=== PATIENT | female | born 1980 | race Caucasian/White ===

== ENCOUNTER 2018-08-08 13:43 | Emergency (ER) | payer OTHER ==
[~2018-08-08] VITALS: Ht 167.6 cm; Wt 68.6 kg
[2018-08-08 13:54] VITALS: BP 175/82; PULSE 81; RESP 18; Ht 167.6 cm; Wt 68.6 kg
--- NOTE | 2018-08-08 15:19 | ERD ---
ER Documentation Chief Complaint Chief Complaint C/O H/A AND NECK PAIN S/P TRIP AND FALL LAST NIGHT. ABRASION TO FOREHEAD. HPI This is a 37 yo female patient who presents to the ED with c/o head pain. States that last night she was breaking apart a wooden bench and slipped and fell onto her forehead. No KO. No nausea. No bleeding.+ETOH at time of fall. Patient states this morning while she was driving to work she had a sudden sensation of confusion, dizziness, pain in her right eye and now is complaining of throbbing while being in an upright position that is relieved by laying down. No vomiting, clear speech, no headache. Superficial abrasion noted to center of forehead. ROS All systems reviewed and are negative except as per history of present illness. Medications Home Meds Active Scripts Tramadol HCl (Tramadol HCl) 50 Mg Tablet, 50 MG PO Q4 PRN for PAIN for 3 Days, #10 TAB Prov:SELMA ALEXANDER NP 08/08/18 Allergies Allergies: Coded Allergies: No Known Allergy (Unverified , 08/08/18) PMhx/Soc History of Surgery: No Anesthesia Reaction: No Hx Neurological Disorder: No Hx Respiratory Disorders: No Hx Cardiac Disorders: Yes (htn) Hx Psychiatric Problems: No Hx Miscellaneous Medical Probl: No Hx Alcohol Use: No Hx Substance Use: No Hx Tobacco Use: No Smoking Status: Never smoker FmHx Family History: No diabetes, No coronary disease, No other Physical Exam Vitals Vital Signs Date Temp Pulse Resp B/P (MAP) Pulse Ox O2 O2 Flow FiO2 Time Delivery Rate 08/08/18 98.3 81 18 175/82 99 13:54 (113) Physical Exam Const: No acute distress Head: abrasion to center of forehead, no bleeding, no swelling, point tenderness at site of abrasion, no crepitus Eyes: Normal Conjunctiva. PERRL, EOMI, no raccoon eyes ENT: Normal External Ears, Nose and Mouth. Pharynx pink, moist, no oral injury. No graham signs. Neck: Full range of motion. No meningismus. Cervical spinal tenderness at C4-5, No lymphadenopathy. Resp: Clear to auscultation bilaterally, no rales, rhonchi. Chest rise equal bilaterally. Cardio: Regular rate and rhythm, no murmurs Abd: Soft, non tender, non distended. Normal bowel sounds. No bruising. Skin: No petechiae or rashes, no abrasions, no hematomas. Back: No midline or flank tenderness, no point tenderness to spine, FROM Ext: No cyanosis, or edema, no deformities Neur: Awake and alert, CN II-XII intact, steady gait, clear speech, no pronator drift, equal smile, BL tombstone erector 5/5, sensation intact BL, negative Romberg, negative [id number] test Psych: Normal Mood and Affect Results 24 hrs Laboratory Tests Test 08/08/18 15:44 Bedside Urine pH (LAB) 7.5 Bedside Urine Protein (LAB) 1+ Bedside Urine Glucose (UA) Negative Bedside Urine Ketones (LAB) Negative Bedside Urine Blood 3+ Bedside Urine Nitrite (LAB) Positive Bedside Urine Leukocyte Esterase (L Negative Procedures/MDM PROCEDURES/MDM DIAGNOSTIC IMAGING: Read by radiologist. CT Brain IMPRESSION: No evidence of acute intracranial pathology. CT Cervical spine IMPRESSION: 1. Reversal of the cervical lordosis, without evidence of fracture. 2. Mild cervical spondylosis/degenerative enthesopathy as described above. 3. Enlarged heterogeneous thyroid with small nodules seen. Laboratory carol elation is advised. Consider follow-up with ultrasound as clinically indicated. PROCEDURES: none LAB INTERPRETATION: Not performed MDM: Is a 37-year-old female patient who presents to the emergency room with complaint of confusion, dizziness, head pain status post falling onto her forehead last night. The patient presented awake, alert, appropriate, no distress, moving all ext remities equally. Traumatic injuries considered include: skull fracture, diffuse axonal injury, cerebral contusion, SDH, traumatic SDH, penetrating injury, spinal cord injury, long bone fracture, abdominal contusion. Based on evaluation and diagnostic report, this patients head injury is minor in nature. She is felt to be at very low risk of deterioration and can reliably be observed at home. Long discussion had with patient regarding signs and symptoms that would be concerning for injury in evolution. She was warned to return to ER immediately for any alteration in behavior, speech, motor movement, vomiting or any concerns. Discussed incidental finding of thyromegaly and need for close follow-up. Patient left the emergency department prior to obtaining discharge instructions. I spoke with patient on the telephone reiterating diagnosis and discharge instructions, including red flags. Patient states she will return to the ED tomorrow for discharge instructions, radiology report, prescriptions. DISPOSITION: Patient was discharged to follow-up with community physician. Departure Diagnosis: Primary Impression: Acute head injury without loss of consciousness Encounter type: initial encounter Qualified Codes: S09.90XA - Unspecified injury of head, initial encounter Additional Impression: Neck strain Encounter type: initial encounter Qualified Codes: S16.1XXA - Strain of muscle, fascia and tendon at neck level, initial encounter Condition: Stable SELMA ALEXANDER NP Aug 08, 2018 15:19
[2018-08-08] MEDS ORDERED: TRAM50TA2 PO (16:50)
== END 2018-08-09 11:41 | disposition left against medical advice (07) ==
LOC: FTE 13:43
DX: S09.90XA Unspecified injury of head, initial encounter (principal); S16.1XXA Strain of muscle, fascia and tendon at neck level, initial encounter; S00.81XA Abrasion of other part of head, initial encounter; I10 Essential (primary) hypertension; R51 Headache; W20.8XXA Other cause of strike by thrown, projected or falling object, initial encounter; Y92.9 Unspecified place or not applicable
CPT/HCPCS: 70450; 72125; 81003

== ENCOUNTER 2018-09-15 18:53 | Emergency (ER) | payer OTHER ==
[~2018-09-15] VITALS: Ht 165.1 cm; Wt 69.3 kg
[~2018-09-15 18:53] MED LIST: ACET-141 PO; ALPR0.254 PO; BUPR300T4 PO; ESCI10TA48 PO; HYDR25TA6 PO; LISI-471 PO; POTA10TA37 PO; TRAM50TA2 PO
[2018-09-15 18:55] VITALS: PULSE 105; RESP 20; Ht 165.1 cm; Wt 69.3 kg
[2018-09-15 19:21] VITALS: BP 146/80
--- NOTE | 2018-09-15 20:47 | ERD ---
ER Documentation Chief Complaint Chief Complaint pt stated being hypotensive, dizziness with SOB x 1 day; denies chest pain HPI 38-year-old female with history history of hypertension presents with complaint of anxiety and shortness of breath for the past day. Patient states she just recently started taking hydrochlorothiazide about a week ago but she does not think it is working as her blood pressure still elevated. States that she is been having acute anxiety lately due to an upcoming move. States she also has history of PTSD for which she takes Lexapro and Wellbutrin. States she also takes benzodiazepines as needed for severe anxiety. Denies dyspnea, lower extremity swelling or pain, pain on exertion, diaphoresis, nausea, radiating of pain, recent travel or immobilization, hemoptysis, dsypnea, history of clotting disorder, syncope, fever, or cough. ROS All systems reviewed and are negative except as per history of present illness. Medications Home Meds Active Scripts Potassium Chloride* (K-Dur*) 10 Meq Tab.prt.sr, 40 MEQ PO DAILY for 5 Days, #5 TAB Prov:RONEY PATTERSON 09/15/18 Tramadol HCl (Tramadol HCl) 50 Mg Tablet, 50 MG PO Q4 PRN for PAIN for 3 Days, #10 TAB Prov:SELMA ALEXANDER NP 08/08/18 Allergies Allergies: Coded Allergies: Penicillins (Verified Allergy, Severe, HIVES, 08/09/18) ibuprofen (Verified Allergy, Severe, HIVES, 08/09/18) PMhx/Soc Medical and Surgical Hx: pt denies Surgical Hx History of Surgery: No Anesthesia Reaction: No Hx Neurological Disorder: No Hx Respiratory Disorders: No Hx Cardiac Disorders: Yes (htn) Hx Psychiatric Problems: No Hx Miscellaneous Medical Probl: No Hx Alcohol Use: No Hx Substance Use: No Hx Tobacco Use: No Smoking Status: Never smoker FmHx Family History: No diabetes, No coronary disease, No other Physical Exam Vitals Vital Signs Date Temp Pulse Resp B/P (MAP) Pulse Ox O2 O2 Flow FiO2 Time Delivery Rate 09/15/18 146/80 19:21 (102) 09/15/18 97.4 105 20 191/102 96 18:55 (131) Physical Exam Const: No acute distress Head: Atraumatic Eyes: Normal Conjunctiva ENT: Normal External Ears, Nose and Mouth. Neck: Full range of motion. No meningismus. Resp: Clear to auscultation bilaterally Cardio: Regular rate and rhythm, no murmurs Abd: Soft, non tender, non distended. Normal bowel sounds Skin: No petechiae or rashes Back: No midline or flank tenderness Ext: No cyanosis, or edema Neur: Awake and alert Psych: Normal Mood and Affect Result Diagram: 09/15/18202209/15/182022 Results 24 hrs Laboratory Tests Test 09/15/18 20:23 09/15/18 20:32 White Blood Count 6.6 10^3/ul Red Blood Count 4.06 10^6/ul Hemoglobin 14.0 g/dl Hematocrit 39.3 % Mean Corpuscular Volume 96.8 fl Mean Corpuscular Hemoglobin 34.5 pg Mean Corpuscular Hemoglobin Concent 35.6 g/dl Red Cell Distribution Width 11.4 % Platelet Count 208 10^3/UL Mean Platelet Volume 9.3 fl Immature Granulocytes % 0.300 % Neutrophils % 59.0 % Lymphocytes % 30.8 % Monocytes % 8.2 % Eosinophils % 1.4 % Basophils % 0.3 % Nucleated Red Blood Cells % 0.0 /100WBC Immature Granulocytes # 0.020 10^3/ul Neutrophils # 3.9 10^3/ul Lymphocytes # 2.0 10^3/ul Monocytes # 0.5 10^3/ul Eosinophils # 0.1 10^3/ul Basophils # 0.0 10^3/ul Nucleated Red Blood Cells # 0.0 10^3/ul Sodium Level 140 mmol/L Potassium Level 2.9 mmol/L Chloride Level 99 mmol/L Carbon Dioxide Level 29 mmol/L Anion Gap 12 Blood Urea Nitrogen 15 mg/dl Creatinine 0.74 mg/dl Est Glomerular Filtrat Rate mL/min > 60 mL/min Glucose Level 100 mg/dl Calcium Level 10.0 mg/dl Total Bilirubin 0.8 mg/dl Direct Bilirubin 0.00 mg/dl Indirect Bilirubin 0.8 mg/dl Aspartate Amino Transf (AST/SGOT) 77 IU/L Alanine Aminotransferase (ALT/SGPT) 50 IU/L Alkaline Phosphatase 93 IU/L Troponin I < 0.012 ng/ml Total Protein 7.6 g/dl Albumin 4.4 g/dl Globulin 3.20 g/dl Albumin/Globulin Ratio 1.37 Thyroid Stimulating Hormone (TSH) 1.370 MIU/L Bedside Urine pH (LAB) 7.0 Bedside Urine Protein (LAB) Negative Bedside Urine Glucose (UA) Negative Bedside Urine Ketones (LAB) 1+ Bedside Urine Blood 2+ Bedside Urine Nitrite (LAB) Negative Bedside Urine Leukocyte Esterase (L Trace Current Medications Medications Dose Sig/Eliot Start Time Status Last (Trade) Ordered Route PRN Stop Time Admin Dose Reason Admin Clonidine 0.1 mg ONCE ONCE 09/15/18 DC 09/15/18 (Catapres) PO 20:30 20:21 09/15/18 20:31 Potassium 60 meq ONCE STAT 09/15/18 DC Chloride PO 21:12 (Klor-Con 20) 09/15/18 21:14 Procedures/MDM EKG: Rate/Rhythm: Normal Sinus Rhythm QRS, ST, T-waves: No changes consistent w/ acute ischemia Impression: No evidence of ischemia or arrhythmia Patient had a potassium of 2.9 so potassium was ordered for her. Per Dr Sigala's recommendation, I discussed the case with Dr. Leo and he stated that patient did not need IV potassium or to be on a monitor, rather she could take p.o. potassium will be discharged with 5-day supply potassium. In addition, 1mg of clonidine was ordered for patient. I was advised by nursing that patient left ER before treatments were administered. . Due to patient eloping from emergency department I was unable to reassess patient or provide her with discharge instructions. Departure Diagnosis: Primary Impression: Shortness of breath Additional Impressions: Eloped from emergency department Hypokalemia Condition: Serious RONEY PATTERSON Sep 15, 2018 20:47
[2018-09-15] MEDS ORDERED: POTASSIUM CHLORIDE (SR) 20 MEQ TAB PO STA (21:12)
--- NOTE | 2018-09-16 20:52 | EN ---
Date/Time of Note Date/Time of Note DATE: 09/16/18 TIME: 20:51 ER Progress Note Attempt was made to call patient at approximately 8:50 PM on September 16, 2018 to advise her of her hypokalemia and tell her to return to ER for treatment, but phone number was not working. I spoke to her contact and was given correct phone number at [phone]. I advised patient that she needs to come in for treatment and she agreed to do so tonight. RONEY PATTERSON Sep 16, 2018 20:52
== END 2018-09-15 23:03 | disposition home or self-care (01) ==
LOC: FTE 18:53
DX: E87.6 Hypokalemia (principal); I10 Essential (primary) hypertension
CPT/HCPCS: 71045; 80053; 81003; 84443; 84484; 85025; Z7502; Z7610

== ENCOUNTER 2018-09-16 21:29 | Emergency (ER) | payer OTHER ==
[~2018-09-16] VITALS: Ht 165.1 cm; Wt 69.7 kg
[2018-09-16 21:32] VITALS: Ht 165.1 cm; Wt 69.7 kg
[2018-09-16] MEDS ORDERED: NITROGLYCERIN 2% 1 GM OINT PKT TD STA (21:40)
[2018-09-16] MEDS ORDERED: POTASSIUM CHLORIDE (SR) 20 MEQ TAB PO STA (22:43)
[2018-09-16] MEDS: POTASSIUM CHLORIDE 100 ML IVPB SCH (22:59)
--- NOTE | 2018-09-17 00:32 | ERD ---
ER Documentation Chief Complaint Chief Complaint MD REFERRAL FOR "LOW POTASSIUM". HPI This is a 38-year-old female who was called back to the ER because her potassium was noted to be low at 2.9. Patient denies any symptoms but has noted that her blood pressure has been elevated and she feels like the current medication of hydrochlorothiazide does not treat her blood pressure well. She denies chest pain fevers chills nausea vomiting or headache. Denies shortness of breath. ROS All systems reviewed and are negative except as per history of present illness. Medications Home Meds Reported Medications Acetaminophen* (Acetaminophen*) 500 MG Extra Strength Tablet, 500 MG PO Q4H PRN for PAIN AND OR ELEVATED TEMP, TAB 09/17/18 Bupropion Hcl* (Bupropion XL*) 300 Mg Tab.sr.24h, 300 MG PO QAM for 30 Days, #30 09/17/18 Escitalopram Oxalate* (Escitalopram Oxalate*) 10 Mg Tablet, 10 MG PO QAM for 30 Days, #30 09/17/18 Hydrochlorothiazide* (Hydrochlorothiazide*) 25 Mg Tab, 25 MG PO QAM for 30 Days, #30 09/17/18 Alprazolam* (Alprazolam*) 0.25 Mg Tablet, 0.25 MG PO DAILY PRN for ANXIETY 09/17/18 Discontinued Scripts Potassium Chloride* (K-Dur*) 10 Meq Tab.prt.sr, 40 MEQ PO DAILY for 5 Days, #5 TAB Prov:RONEY PATTERSON 09/15/18 Tramadol HCl (Tramadol HCl) 50 Mg Tablet, 50 MG PO Q4 PRN for PAIN for 3 Days, #10 TAB Prov:SELMA ALEXANDER NP 08/08/18 Allergies Allergies: Coded Allergies: Penicillins (Unverified Allergy, Severe, HIVES, 09/17/18) ibuprofen (Unverified Allergy, Severe, HIVES, 09/17/18) PMhx/Soc History of Surgery: No Anesthesia Reaction: No Hx Neurological Disorder: No Hx Respiratory Disorders: No Hx Cardiac Disorders: Yes (htn) Hx Psychiatric Problems: No Hx Miscellaneous Medical Probl: No Hx Alcohol Use: No Hx Substance Use: No Hx Tobacco Use: No Smoking Status: Never smoker Physical Exam Vitals Vital Signs Date Temp Pulse Resp B/P (MAP) Pulse Ox O2 O2 Flow FiO2 Time Delivery Rate 09/16/18 98.0 20 185/107 100 Room Air 21:40 (133) 09/16/18 98.0 108 20 185/107 100 21:32 (133) Physical Exam Const: No acute distress Head: Atraumatic Eyes: Normal Conjunctiva ENT: Normal External Ears, Nose and Mouth. Neck: Full range of motion. No meningismus. Resp: Clear to auscultation bilaterally Cardio: Regular rate and rhythm, no murmurs Abd: Soft, non tender, non distended. Normal bowel sounds Skin: No petechiae or rashes Back: No midline or flank tenderness Ext: No cyanosis, or edema Neur: Awake and alert Psych: Normal Mood and Affect Result Diagram: 09/16/18220109/16/182201 Results 24 hrs Laboratory Tests Test 09/16/18 22:02 White Blood Count 6.7 10^3/ul Red Blood Count 3.74 10^6/ul Hemoglobin 12.9 g/dl Hematocrit 36.8 % Mean Corpuscular Volume 98.4 fl Mean Corpuscular Hemoglobin 34.5 pg Mean Corpuscular Hemoglobin Concent 35.1 g/dl Red Cell Distribution Width 11.5 % Platelet Count 197 10^3/UL Mean Platelet Volume 9.4 fl Immature Granulocytes % 0.400 % Neutrophils % 62.0 % Lymphocytes % 26.7 % Monocytes % 9.5 % Eosinophils % 1.0 % Basophils % 0.4 % Nucleated Red Blood Cells % 0.0 /100WBC Immature Granulocytes # 0.030 10^3/ul Neutrophils # 4.2 10^3/ul Lymphocytes # 1.8 10^3/ul Monocytes # 0.6 10^3/ul Eosinophils # 0.1 10^3/ul Basophils # 0.0 10^3/ul Nucleated Red Blood Cells # 0.0 10^3/ul Sodium Level 136 mmol/L Potassium Level 2.8 mmol/L Chloride Level 96 mmol/L Carbon Dioxide Level 29 mmol/L Anion Gap 11 Blood Urea Nitrogen 15 mg/dl Creatinine 0.84 mg/dl Est Glomerular Filtrat Rate mL/min > 60 mL/min Glucose Level 92 mg/dl Calcium Level 9.7 mg/dl Total Bilirubin 1.6 mg/dl Direct Bilirubin 0.00 mg/dl Indirect Bilirubin 1.6 mg/dl Aspartate Amino Transf (AST/SGOT) 72 IU/L Alanine Aminotransferase (ALT/SGPT) 52 IU/L Alkaline Phosphatase 80 IU/L Troponin I < 0.012 ng/ml B-Type Natriuretic Peptide 23 PG/ML Total Protein 7.7 g/dl Albumin 4.5 g/dl Globulin 3.20 g/dl Albumin/Globulin Ratio 1.40 Current Medications Medications Dose Sig/Eliot Start Time Status Last (Trade) Ordered Route PRN Stop Time Admin Dose Reason Admin 1 inch ONCE STAT 09/16/18 DC 09/16/18 Nitroglycerin TD 21:40 21:54 09/16/18 21:41 (Nitroglyceri n 2% Oint) Potassium 100 ml @ Q2H IVPB 09/16/18 09/16/18 Chloride 50 mls/hr 23:00 22:59 09/17/18 04:59 Potassium 40 meq ONCE STAT 09/16/18 DC 09/16/18 Chloride PO 22:43 22:59 (Klor-Con 20) 09/16/18 22:45 Procedures/MDM EKG: Rate/Rhythm: [Normal Sinus Rhythm] QRS, ST, T-waves: [No changes consistent w/ acute ischemia] Impression: [No evidence of ischemia or arrhythmia] Chest X-ray 1V Interpreted by me: Soft Tissue: No acute abnormalities Bones: No acute abnormalities Mediastinum/Cardiac Silhouette/Lungs: [No acute abnormalities] Medical decision makin-year-old female here with elevated blood pressure has been treated with nitro with good response. She denies any chest pain or palpitations or shortness of breath at all during her stay or interim since her last ER visit. Her potassium was repleted. I did give to asked the patient to discontinue hydrochlorothiazide. Patient will be started on lisinopril given her normal renal function. She is to follow-up with primary care physician and return for worsening symptoms otherwise. Departure Diagnosis: Primary Impression: Hypokalemia Additional Impression: Accelerated hypertension Condition: Stable RONEY WHITTEN Sep 17, 2018 00:32
[2018-09-17] MEDS: POTASSIUM CHLORIDE 100 ML IVPB SCH (01:00)
[2018-09-17 01:45] VITALS: BP 109/64; PULSE 85; RESP 16
== END 2018-09-17 01:46 | disposition home or self-care (01) ==
LOC: E/R 21:29
DX: E87.6 Hypokalemia (principal); I10 Essential (primary) hypertension
CPT/HCPCS: 71045; 80053; 83880; 84484; 85025; 93005; J3480; Z7610; 36415

== ENCOUNTER 2018-09-18 07:43 | Emergency (ER) | payer OTHER ==
[~2018-09-18] VITALS: Ht 165.1 cm; Wt 70.5 kg
[2018-09-18 07:46] VITALS: BP 124/74; PULSE 92; RESP 20; Ht 165.1 cm; Wt 70.5 kg
--- NOTE | 2018-09-18 08:34 | ERD ---
ER Documentation Chief Complaint Chief Complaint on and off pressure like chest pain non radiating, sob started @ 6:30 today HPI 38-year-old female history of high blood pressure. Recently seen in the ER for hypokalemia. Patient woke up this morning with chest pressure. Was concerned given recent ER visit. Chest pain has since resolved with no intervention. Denies any exertional symptoms. Denies any nausea vomiting or diarrhea. Denies any cough or shortness of breath. Pain was pressure in nature ROS All systems reviewed and are negative except as per history of present illness. Medications Home Meds Active Scripts Lisinopril* (Lisinopril*) 20 Mg Tablet, 20 MG PO DAILY, #30 TAB Prov:RONEY WHITTEN 09/17/18 Reported Medications Acetaminophen* (Acetaminophen*) 500 MG Extra Strength Tablet, 500 MG PO Q4H PRN for PAIN AND OR ELEVATED TEMP, TAB 09/17/18 Bupropion Hcl* (Bupropion XL*) 300 Mg Tab.sr.24h, 300 MG PO QAM for 30 Days, #30 09/17/18 Escitalopram Oxalate* (Escitalopram Oxalate*) 10 Mg Tablet, 10 MG PO QAM for 30 Days, #30 09/17/18 Hydrochlorothiazide* (Hydrochlorothiazide*) 25 Mg Tab, 25 MG PO QAM for 30 Days, #30 09/17/18 Alprazolam* (Alprazolam*) 0.25 Mg Tablet, 0.25 MG PO DAILY PRN for ANXIETY 09/17/18 Discontinued Scripts Potassium Chloride* (K-Dur*) 10 Meq Tab.prt.sr, 40 MEQ PO DAILY for 5 Days, #5 TAB Prov:RONEY PATTERSON 09/15/18 Tramadol HCl (Tramadol HCl) 50 Mg Tablet, 50 MG PO Q4 PRN for PAIN for 3 Days, #10 TAB Prov:SELMA ALEXANDER NP 08/08/18 Allergies Allergies: Coded Allergies: Penicillins (Unverified Allergy, Severe, HIVES, 09/18/18) ibuprofen (Unverified Allergy, Severe, HIVES, 09/18/18) PMhx/Soc History of Surgery: No Anesthesia Reaction: No Hx Neurological Disorder: No Hx Respiratory Disorders: No Hx Cardiac Disorders: Yes (htn) Hx Psychiatric Problems: No Hx Miscellaneous Medical Probl: No Hx Alcohol Use: No Hx Substance Use: No Hx Tobacco Use: No Smoking Status: Never smoker Physical Exam Vitals Vital Signs Date Temp Pulse Resp B/P (MAP) Pulse Ox O2 O2 Flow FiO2 Time Delivery Rate 09/18/18 98.4 92 20 124/74 99 07:46 (91) Physical Exam Const: No acute distress Head: Atraumatic Eyes: Normal Conjunctiva ENT: Normal External Ears, Nose and Mouth. Neck: Full range of motion. No meningismus. Resp: Clear to auscultation bilaterally Cardio: Regular rate and rhythm, no murmurs Abd: Soft, non tender, non distended. Normal bowel sounds Skin: No petechiae or rashes Back: No midline or flank tenderness Ext: No cyanosis, or edema Neur: Awake and alert Psych: Normal Mood and Affect Result Diagram: 09/18/18 0853 09/18/18 0853 Results 24 hrs Laboratory Tests Test 09/18/18 08:53 White Blood Count 6.8 10^3/ul Red Blood Count 3.48 10^6/ul Hemoglobin 12.2 g/dl Hematocrit 34.8 % Mean Corpuscular Volume 100.0 fl Mean Corpuscular Hemoglobin 35.1 pg Mean Corpuscular Hemoglobin Concent 35.1 g/dl Red Cell Distribution Width 11.6 % Platelet Count 174 10^3/UL Mean Platelet Volume 9.5 fl Immature Granulocytes % 0.400 % Neutrophils % 69.2 % Lymphocytes % 18.6 % Monocytes % 9.5 % Eosinophils % 1.9 % Basophils % 0.4 % Nucleated Red Blood Cells % 0.0 /100WBC Immature Granulocytes # 0.030 10^3/ul Neutrophils # 4.7 10^3/ul Lymphocytes # 1.3 10^3/ul Monocytes # 0.6 10^3/ul Eosinophils # 0.1 10^3/ul Basophils # 0.0 10^3/ul Nucleated Red Blood Cells # 0.0 10^3/ul Sodium Level 138 mmol/L Potassium Level 3.6 mmol/L Chloride Level 103 mmol/L Carbon Dioxide Level 29 mmol/L Anion Gap 6 Blood Urea Nitrogen 8 mg/dl Creatinine 0.71 mg/dl Est Glomerular Filtrat Rate mL/min > 60 mL/min Glucose Level 90 mg/dl Calcium Level 9.5 mg/dl Troponin I < 0.012 ng/ml Procedures/MDM The patient presents with chest pain and I considered pulmonary embolism, aortic dissection, pneumothorax among other diagnoses. Evaluation for acute coronary syndrome was performed. The HEART score was utilized for risk stratification and found to be < 3. Based on this evaluation the patients risk of major adverse cardiac events is <1%. Shared decision making occurred with patient and the decision has been made to discharge the patient for outpatient evaluation and functional study within 72 hours. ECG Time: 751 Ventricular Rate: 93 Rhythm: normal sinus rhythm. ST Segments: without evidence of depressions or elevations Intervals: without evidence of AV block, new BBB, long QT, Brugada No evidence of delta wave. Departure Diagnosis: Primary Impression: Chest pain Chest pain type: unspecified Qualified Codes: R07.9 - Chest pain, unspecified CAROLINA MASON MD Sep 18, 2018 08:34
== END 2018-09-18 10:19 | disposition home or self-care (01) ==
LOC: E/R 07:43
DX: R07.89 Other chest pain (principal); I10 Essential (primary) hypertension
CPT/HCPCS: 36415; 71045; 80048; 84484; 85025; 93005; Z7502

== ENCOUNTER 2018-10-29 02:34 | Emergency (ER) | payer OTHER ==
[~2018-10-29] VITALS: Ht 165.1 cm; Wt 71.9 kg
[~2018-10-29 02:34] MED LIST changes: -POTA10TA37 PO; -TRAM50TA2 PO
[2018-10-29 02:37] VITALS: Ht 165.1 cm; Wt 71.9 kg
[2018-10-29 03:41] VITALS: BP 149/100; PULSE 75; RESP 22
== END 2018-10-29 03:44 | disposition home or self-care (01) ==
LOC: E/R 02:34
DX: I10 Essential (primary) hypertension (principal)
CPT/HCPCS: 99282